=== PATIENT | female | born 1945 | race Caucasian/White ===

== ENCOUNTER 2019-12-29 16:30 | Outpatient (RCR) | payer OTHER, SELFPAY ==
[2019-10-07 08:10] VITALS: BP 116/60; PULSE 66; RESP 14; TEMP 37.1
== END 2019-12-29 19:30 | disposition home or self-care (01) ==
LOC: ANHCPREHAB 16:30
PROVIDERS: PCP Family Medicine
DX: Z95.5 Presence of coronary angioplasty implant and graft (principal)
CPT/HCPCS: 93798

== ENCOUNTER 2021-11-24 08:26 | Emergency (ER) | payer OTHER, SELFPAY ==
[2021-11-24 08:30] VITALS: BP 142/60; PULSE 62; RESP 20; TEMP 36.4; O2SAT 99
--- NOTE | 2021-11-24 08:35 | ED.FEMALEGU ---
HPI - Female Genitourinary General Chief complaint: Urogenital-Female Stated complaint: poss UTI Time Seen by Provider: 11/24/21 08:36 Source: patient, RN notes reviewed and old records reviewed Mode of arrival: ambulatory Limitations: no limitations History of Present Illness HPI Narrative: 76-year-old female who presents to [facility] care with complaints of urinary tract infection symptoms of frequency, urgency and burning of urination which started this morning at 0400. Patient also reports that for the past several weeks she has also had left lower back pain.Patient reports that she does routinely sees a chiropractor monthly and thinks her back discomfort is related to her back being out. Patient denies any vaginal discharge or itching, denies any concern for STD's. Patient has not taken any OTC medications for her symptoms. MD elicited complaint: UTI Onset (ago): hour(s) (this am at 0400) Location of symptoms: urethra and low back (left) Severity scale (1-10): 4 Related Data Home Medications Medication Instructions Recorded Confirmed apixaban 5 mg tablet (Eliquis) 5 mg PO BID 10/10/19 11/24/21 carvedilol 6.25 mg tablet 6.25 mg PO Q12H 10/10/19 11/24/21 clopidogrel 75 mg tablet 75 mg PO DAILY 10/10/19 11/24/21 metformin 500 mg tablet 500 mg PO DAILY 10/10/19 11/24/21 rosuvastatin 40 mg tablet 40 mg PO DAILY 10/10/19 11/24/21 sacubitril 24 mg-valsartan 26 mg 1 tablet PO BID 12/12/19 11/24/21 tablet (Entresto) aspirin 81 mg tablet,delayed 81 mg PO DAILY 11/24/21 11/24/21 release Allergies Allergy/AdvReac Type Severity Reaction Status Date / Time No Known Allergies Allergy Verified 11/24/21 08:36 Review of Systems Review of Systems: CONSTITUTIONAL: Denies fever, chills, or sweats. CARDIOVASCULAR: Denies chest pain, palpitations, or edema. RESPIRATORY: Denies cough or dyspnea. GASTROINTESTINAL: Denies abdominal pain, nausea, vomiting, or diarrhea. GENITOURINARY: Reports dysuria, frequency, urgency. Denies flank pain or visible hematuria. SKIN: Denies rash or itching. MUSCULOSKELETAL: positive for left lower back pain or myalgia. Denies CVA tenderness NEUROLOGIC: Denies headache All systems reviewed & are unremarkable except as noted in HPI and below PMFSH Past Medical History Medical History (Updated 11/24/21 @ 09:21 by Chelsea Mcneil NP) CAD (coronary artery disease) Diabetes Elevated cholesterol HTN (hypertension) Surgical History Surgical History (Updated 11/24/21 @ 09:21 by Chelsea Mcneil NP) History of dilatation and curettage Hx of heart artery stent 7 cardiac stents Family History Family History (Updated 10/07/19 @ 08:40 by Lilly Echavarria RN) Mother Breast cancer in female Social History Social History (Updated 11/24/21 @ 08:39 by Chelsea Mcneil NP) Smoking packs per day: 1 Smoking cigarettes per day: 20.0 Smoking status: Former smoker Tobacco type: cigarettes Additional smoking assessment comments: quit 40 years ago, smoked for 6 years Alcohol intake: current Alcohol use details: social Substance use type: does not use Living arrangements: with family Gender identity (if verbalized by the patient): Female Comments At time of signature, agree with nursing past medical, surgical, social and family history. There is no relevant family history pertinent to the presenting complaint Exam Narrative: GENERAL: Well-appearing, well-nourished, and in no acute distress. HEAD: Normocephalic, atraumatic. NECK: Supple.no lymphadenopathy CHEST: Clear to auscultation. No respiratory distress.SAO2 99% on room air HEART: Regular rate and rhythm. No murmur heard. Normal peripheral pulses. ABDOMEN: Soft, nontender, nondistended, normal active bowel sounds. No CVA tenderness but has left lower back pain. Patient reports that she has urgency, frequency and burning with urination since 0400. EXTREMITIES: Normal range of motion. No edema. SKIN: Warm,
== END 2021-11-24 08:44 | disposition home or self-care (01) ==
PROVIDERS: Emergency Provider Registered Nurse; PCP Family Medicine
DX: N39.0 Urinary tract infection, site not specified (principal); R31.9 Hematuria, unspecified; Z87.891 Personal history of nicotine dependence; I25.10 Atherosclerotic heart disease of native coronary artery without angina pectoris; E11.9 Type 2 diabetes mellitus without complications; E78.00 Pure hypercholesterolemia, unspecified; I10 Essential (primary) hypertension; Z95.5 Presence of coronary angioplasty implant and graft
CPT/HCPCS: 81003; 87086; 87088; 99213; G0463

== ENCOUNTER 2023-04-22 08:02 | Emergency (ER) | payer OTHER, SELFPAY ==
--- NOTE | ~2023-04-22 | XR_ITS ---
EXAMINATION: XR femur LT min 2V DATE: 04/22/2023 08:30 INDICATION: Painful hard knot at the left mid thigh post trauma TECHNIQUE: AP and lateral views of the left femur were obtained on overlapping proximal and distal im ages. COMPARISON: None. FINDINGS: Bone alignment is normal. No fracture. Polyarticular osteoarthritis, mild at the left hip, medial com partment of the left knee and moderate to left sacroiliac joint. Calcified mass in the pelvis likely represent a uterine fibroid. Heterotopic opacification overlying the greater trochanter. No knee join t effusion. IMPRESSION: 1. Mild to moderate polyarticular osteoarthritis in the visualized pelvis and left leg. No acute osse ous abnormality. 2. Likely calcified uterine fibroid. Reviewed, dictated and finalized at location A. CARRIER IMPRESSION: 1. Mild to moderate polyarticular osteoarthritis in the visualized pelvis and l eft leg. No acute osseous abnormality. 2. Likely calcified uterine fibroid.
[2023-04-22 08:10] VITALS: BP 146/71; PULSE 93; RESP 16; TEMP 36.1; O2SAT 100
--- NOTE | 2023-04-22 08:12 | ED.GENADULT ---
HPI - General Adult General Chief complaint: Extremity Injury, Lower Stated complaint: left upper thigh injury Time Seen by Provider: 04/22/23 08:20 Source: patient, RN notes reviewed and old records reviewed Mode of arrival: ambulatory Limitations: no limitations History of Present Illness HPI narrative: 78-year-old female presents to [facility] with complaints of injury to her left upper thigh one week ago on Thursday when he hit her left upper lateral leg on a sofa table at work. Patient reports that pain has increased to the area which is now firm with palpable knot to anterior aspect of her thigh and it is difficult to walk on her leg due to pain. Patient is on blood thinners daily for cardiac disease and cardiac stents X7. She has applied ice to the area at intermittent intervals, taking Tylenol and also has applied heat. Onset (ago): day(s) (9) Location: left and lower extremity (upper lateral thigh) Severity scale (1-10): 4 Quality: aching Exacerbating factors: other (ambulation) Treatments prior to arrival: cold therapy, heat therapy and other (Tylenol) Related Data Home Medications Medication Instructions Recorded Confirmed apixaban 5 mg tablet (Eliquis) 5 mg PO BID 10/10/19 04/22/23 carvedilol 6.25 mg tablet 6.25 mg PO Q12H 10/10/19 04/22/23 rosuvastatin 40 mg tablet 40 mg PO DAILY 10/10/19 04/22/23 sacubitril 24 mg-valsartan 26 mg 1 tablet PO BID 12/12/19 04/22/23 tablet (Entresto) aspirin 81 mg tablet,delayed 81 mg PO DAILY 11/24/21 04/22/23 release dapagliflozin propanediol 10 mg 10 mg PO DAILY 04/22/23 04/22/23 tablet (Farxiga) Allergies Allergy/AdvReac Type Severity Reaction Status Date / Time No Known Allergies Allergy Verified 04/22/23 08:21 Review of Systems Review of Systems: CONSTITUTIONAL: Denies fever, chills, or sweats. EYES: Denies visual changes, redness, or discharge. ENT: Denies rhinorrhea, congestion, sore throat, or otalgia. CARDIOVASCULAR: Denies chest pain, palpitations, or edema. RESPIRATORY: Denies cough or dyspnea. GASTROINTESTINAL: Denies abdominal pain, nausea, vomiting, or diarrhea. GENITOURINARY: Denies dysuria or hematuria. SKIN: Denies rash or itching. firmness of tissue to left lateral thigh with palpable knot area to the anterior aspect of left thigh, reports that it is painful to ambulate. MUSCULOSKELETAL: Denies back pain, joint pain, or myalgia. NEUROLOGIC: Denies headache, numbness, or weakness. PSYCHIATRIC: Denies anxiety or depression. All systems reviewed & are unremarkable except as noted in HPI and below PMFSH Past Medical History Medical History CAD (coronary artery disease) Diabetes Elevated cholesterol HTN (hypertension) Surgical History Surgical History (Updated 11/24/21 @ 09:21 by Chelsea Mcneil NP) History of dilatation and curettage Hx of heart artery stent 7 cardiac stents Family History Family History Mother Breast cancer in female Social History Social History (Updated 11/24/21 @ 08:39 by Chelsea Mcneil NP) Smoking packs per day: 1 Smoking cigarettes per day: 20.0 Smoking status: Former smoker Tobacco type: cigarettes Additional smoking assessment comments: quit 40 years ago, smoked for 6 years Alcohol intake: current Alcohol use details: social Substance use type: does not use Living arrangements: with family Gender identity (if verbalized by the patient): Female Comments At time of signature, agree with nursing past medical, surgical, social and family history. There is no relevant family history pertinent to the presenting complaint Exam Narrative: GENERAL: Well-appearing, well-nourished, and in no acute distress. HEAD: Normocephalic, atraumatic. EYES: PERRLA and EOMI. ENT: Nares clear, no rhinorrhea or epistaxis. Mucous membranes moist. NECK: Supple. no lymphadenopathy CHEST:
== END 2023-04-22 09:00 | disposition home or self-care (01) ==
PROVIDERS: Emergency Provider Registered Nurse; PCP Family Medicine
DX: S70.12XA Contusion of left thigh, initial encounter (principal); W22.03XA Walked into furniture, initial encounter; Y99.0 Civilian activity done for income or pay; I25.10 Atherosclerotic heart disease of native coronary artery without angina pectoris; Z95.5 Presence of coronary angioplasty implant and graft; E11.9 Type 2 diabetes mellitus without complications; E78.00 Pure hypercholesterolemia, unspecified; I10 Essential (primary) hypertension; Z79.01 Long term (current) use of anticoagulants; Z87.891 Personal history of nicotine dependence
CPT/HCPCS: 73552; 99213; G0463